=== PATIENT | female | born 1960 | race Caucasian/White ===

== ENCOUNTER 2016-11-23 14:38 | Emergency (ER) | payer OTHER ==
[~2016-11-23] VITALS: Ht 157.5 cm; Wt 80.3 kg
[2016-11-23 15:13] LABS: BILIRUBIN,URINE NEGATIVE (NEG); GLUCOSE,URINE NEGATIVE (NEG); NITRITE,URINE NEGATIVE (NEG); PROTEIN,URINE NEGATIVE (NEG-TRACE); UROBILINOGEN,URINE 0.2 mg/dL (0.2 mg/dL)
[2016-11-23] MEDS ORDERED: ONDANSETRON ODT 4 MG TAB.RAPDIS. PO ONE (15:15)
[2016-11-23] MEDS ORDERED: MORPHINE SULFATE 10 MG/ML VIAL. IV ONE (15:15)
[2016-11-23 15:25] LABS: BACTERIA,URINE 0 /HPF (0-FEW); SQUAMOUS EPITHELIAL CELL,UR FEW /LPF; WBC,URINE OCC /HPF (0-4)
[2016-11-23 15:28] LABS: BASO # 0.1 x10^3/uL (0.0-0.2); BASO % 1 % (0-3); EOS % 2 % (0-3); HEMATOCRIT 37.5 % (36.0-47.0); LYMPH # 3.3 x10^3/uL (1.0-4.8); LYMPH % 28 % (24-48); MEAN CORPUSCULAR HEMOGLOBIN 29 pg (25-35); MEAN CORPUSCULAR HGB CONC 35 g/dL (31-37); MEAN CORPUSCULAR VOLUME 84 fL (79-100); MONO % 6 % (0-9); NEUT % 64 % (31-73); PLATELET COUNT 282 x10^3/uL (140-400); RED BLOOD COUNT 4.45 x10^6/uL (3.50-5.40); RED CELL DISTRIBUTION WIDTH 14.5 % (11.5-14.5); WHITE BLOOD COUNT 12.1 x10^3/uL (4.0-11.0)
[2016-11-23 15:43] LABS: CALCIUM 9.3 mg/dL (8.5-10.1); CREATININE 0.6 mg/dL (0.6-1.0); POTASSIUM 3.8 mmol/L (3.5-5.1)
[2016-11-23] MEDS ORDERED: IOHEXOL 300 MG/ML 75 ML VIAL IV ONE (15:45)
[2016-11-23 15:50] LABS: ALBUMIN 3.5 g/dL (3.4-5.0); ALBUMIN/GLOBULIN RATIO 0.8 (1.0-1.7); TOTAL BILIRUBIN 0.4 mg/dL (0.2-1.0); TOTAL PROTEIN 7.8 g/dL (6.4-8.2)
--- NOTE | 2016-11-23 16:40 | PHYS DOC ---
Past Medical History Past Medical History: No Pertinent History Past Surgical History: , Tonsillectomy, Other Additional Past Surgical Histo: [email or web address] , CTR Alcohol Use: Rarely Drug Use: None Adult General Chief Complaint Chief Complaint: ABDOMINAL PAIN HPI HPI Patient is a 56 year old female presenting to the emergency department for evaluation of right lower quadrant abdominal pain that has been going on for the past 2 weeks but is worsening over the past 2-3 days. She says that it is a severe sharp pain worse especially when she bends forward. She denies any dysuria hematuria diarrhea or constipation but has some nausea and vomiting. She denies any prior abdominal surgeries except for a . She is in no obvious distress with normal vital signs. Review of Systems Review of Systems Constitutional: Denies fever or chills [] Eyes: Denies change in visual acuity, redness, or eye pain [] HENT: Denies nasal congestion or sore throat [] Respiratory: Denies cough or shortness of breath [] Cardiovascular: No additional information not addressed in HPI [] GI: + abdominal pain, nausea, vomiting. No bloody stools or diarrhea [] : Denies dysuria or hematuria [] Musculoskeletal: Denies back pain or joint pain [] Integument: Denies rash or skin lesions [] Neurologic: Denies headache, focal weakness or sensory changes [] Current Medications Current Medications Current Medications Medications (Trade) Dose Ordered Sig/Anna Start Time Stop Time Status Last Admin Dose Admin Iohexol (Omnipaque 300 Mg/ml) 75 ml 1X ONCE 11/23/16 15:45 11/23/16 15:46 DC 11/23/16 16:08 75 ML Morphine Sulfate 5 mg 1X ONCE 11/23/16 15:15 11/23/16 15:16 DC 11/23/16 15:29 5 MG Ondansetron HCl (Zofran Odt) 8 mg 1X ONCE 11/23/16 15:15 11/23/16 15:16 DC 11/23/16 15:28 8 MG Allergies Allergies Allergies Coded Allergies Type Severity Reaction Last Updated Verified codeine Allergy Intermediate Rash 11/23/16 Yes Physical Exam Physical Exam Constitutional: Well developed, well nourished, no acute distress, non-toxic appearance. [] HENT: Normocephalic, atraumatic, bilateral external ears normal, oropharynx moist, no oral exudates, nose normal. [] Eyes: PERRLA, EOMI, conjunctiva normal, no discharge. [] Neck: Normal range of motion, no tenderness, supple, no stridor. [] Cardiovascular:Heart rate regular rhythm, no murmur [] Lungs & Thorax: Bilateral breath sounds clear to auscultation [] Abdomen: Bowel sounds normal, soft, + RLQ tenderness, no rebound or guarding, no masses, no pulsatile masses. [] Skin: Warm, dry, no erythema, no rash. [] Back: No tenderness, no CVA tenderness. [] Extremities: No tenderness, no cyanosis, no clubbing, ROM intact, no edema. [] Neurologic: Alert and oriented X 3, normal motor function, normal sensory function, no focal deficits noted. [] Current Patient Data Vital Signs Vital Signs Date Time Temp Pulse Resp B/P (MAP) Pulse Ox O2 Delivery O2 Flow Rate FiO2 11/23/16 15:29 14 97 Room Air 11/23/16 14:52 99.5 80 133/77 (95) 99.5 Lab Values Laboratory Tests Test 11/23/16 14:29 11/23/16 15:15 Urine Collection Type Void Urine Color Yellow Urine Clarity Clear Urine pH 7.0 Urine Specific Haddock 1.025 Urine Protein Negative mg/dL (NEG-TRACE) Urine Glucose (UA) Negative mg/dL (NEG) Urine Ketones (Stick) Negative mg/dL (NEG) Urine Blood Small (NEG) Urine Nitrite Negative (NEG) Urine Bilirubin Negative (NEG) Urine Urobilinogen Dipstick 0.2 mg/dL (0.2 mg/dL) Urine Leukocyte Esterase Trace (NEG) Urine RBC 3-5 /HPF (0-2) Urine WBC Occ /HPF (0-4) Urine Squamous Epithelial Cells Few /LPF Urine Bacteria 0 /HPF (0-FEW) Urine Mucus Marked /LPF White Blood Count 12.1 x10^3/uL (4.0-11.0) H Red Blood Count 4.45 x10^6/uL (3.50-5.40) Hemoglobin 13.0 g/dL (12.0-15.5) Hematocrit 37.5 % (36.0-47.0) Mean Corpuscular Volume 84 fL (79-100) Mean Corpuscular Hemoglobin 29 pg (25-35) Mean Corpuscular Hemoglobin Concent 35 g/dL (31-37) Red Cell Distribution Width 14.5 % (11.5-14.5) Platelet Count 282 x10^3/uL (140-400) Neutrophils (%) (Auto) 64 % (31-73) Lymphocytes (%) (Auto) 28 % (24-48) Monocytes (%) (Auto) 6 % (0-9) Eosinophils (%) (Auto) 2 % (0-3) Basophils (%) (Auto) 1 % (0-3) Neutrophils # (Auto) 7.8 x10^3uL (1.8-7.7) H Lymphocytes # (Auto) 3.3 x10^3/uL (1.0-4.8) Monocytes # (Auto) 0.7 x10^3/uL (0.0-1.1) Eosinophils # (Auto) 0.2 x10^3/uL (0.0-0.7) Basophils # (Auto) 0.1 x10^3/uL (0.0-0.2) Sodium Level 142 mmol/L (136-145) Potassium Level 3.8 mmol/L (3.5-5.1) Chloride Level 105 mmol/L (98-107) Carbon Dioxide Level 27 mmol/L (21-32) Anion Gap 10 (6-14) Blood Urea Nitrogen 10 mg/dL (7-20) Creatinine 0.6 mg/dL (0.6-1.0) Estimated GFR (Cockcroft-Gault) 103.0 BUN/Creatinine Ratio 17 (6-20) Glucose Level 90 mg/dL (70-99) Calcium Level 9.3 mg/dL (8.5-10.1) Total Bilirubin 0.4 mg/dL (0.2-1.0) Aspartate Amino Transferase (AST) 11 U/L (15-37) L Alanine Aminotransferase (ALT) 17 U/L (14-59) Alkaline Phosphatase 75 U/L (46-116) Total Protein 7.8 g/dL (6.4-8.2) Albumin 3.5 g/dL (3.4-5.0) Albumin/Globulin Ratio 0.8 (1.0-1.7) L Lipase 123 U/L (73-393) Laboratory Tests 11/23/16 15:15 Laboratory Tests 11/23/16 15:15 EKG EKG [] Radiology/Procedures Radiology/Procedures CT scan of the abdomen and pelvis with contrast 11/23/2016 Clinical history: Right lower quadrant abdominal pain for 2 weeks. Technique: After the intravenous administration of 75 cc of Omnipaque 300 only, contiguous, 5 mm axial sections were obtained through the abdomen and pelvis. One or more of the following individualized dose reduction techniques were utilized for this study: 1. Automated exposure control. 2. Adjustment of the mA and/or kV according to patient size. 3. Use of iterative reconstruction technique. Images through the lung bases demonstrate minimal dependent subsegmental atelectasis bilaterally. Several rounded low-attenuation lesions are seen scattered throughout the liver. These measure 3 mm to 1.2 cm in size. They likely represent cysts. The spleen, pancreas, adrenal glands and kidneys are within normal limits. The abdominal aorta tapers normally. The gallbladder is well-distended. No free fluid or free air is seen within the abdomen. There is no evidence of bowel obstruction. The appendix is well visualized and is within normal limits. Multiple diverticula are seen involving the sigmoid colon. Focal wall thickening is seen involving the mid sigmoid colon. Increased density is seen within the adjacent fat. These findings are consistent with diverticulitis. No abnormal fluid collection is seen suggestive evidence of an abscess. Images through the pelvis demonstrate a urinary bladder distended with urine. Calcifications are seen within the pelvis consistent with phleboliths. No free fluid is seen. Degenerative changes are seen involving the lower thoracic and throughout the lumbar spine and both hips. Impression: Findings consistent with sigmoid diverticulitis. No abscess is seen. DICTATED and SIGNED BY: YEHUDA PORTILLO MD DATE: 11/23/16 5596 Course & Med Decision Making Course & Med Decision Making Patient with right lower quadrant pain so we'll get labs CT and reassess. Her urine has a small amount of blood in her symptoms were possibly kidney stone however given the urine is not definitive went ahead and ordered a CT with contrast which showed sigmoid diverticulitis. She does have some pain in her left lower quadrant on repeat examination. There is no hydronephrosis noted on her CT scan. Given the findings of diverticulitis and no findings to support kidney stone we'll go ahead and treat as diverticulitis for now as an outpatient. Patient aware and agreeable with plan for discharge and verbalized understanding of the need for short-term follow-up and strict ER return precautions discussed including worsening pain fevers vomiting or other general concerns. Dragon Disclaimer Dragon Disclaimer This electronic medical record was generated, in whole or in part, using a voice recognition dictation system. Departure Departure Impression: Primary Impression: Diverticulitis Additional Impression: Leukocytosis Disposition: 01 HOME, SELF-CARE Condition: GOOD Referrals: SHWETA MACEDO MD (PCP) Patient Instructions: Diverticulitis Additional Instructions: Drink plenty of water and eat a soft non-irritating diet. Take 400 mg of ibuprofen every 6 hours for the pain and the Percocet for breakthrough pain. Follow with your primary care provider later this week and come back to the ER sooner with any worsening pain fevers vomiting or other general concerns. Scripts Metronidazole (FLAGYL) 500 Mg Tablet 1 TAB PO BID, #14 TAB Prov: SHWETA MEDEROS DO 11/23/16 Levofloxacin (LEVAQUIN) 500 Mg Tablet 1 TAB PO DAILY, #7 TAB Prov: SHWETA MEDEROS DO 11/23/16 Ondansetron (ZOFRAN ODT) 4 Mg Tab.rapdis 4 MG PO BID Y for NAUSEA/VOMITING, #14 TAB Prov: SHWETA MEDEROS DO 11/23/16 Oxycodone/Apap 5-325 (PERCOCET 5-325 MG TABLET) 1 Each Tablet 1 TAB PO PRN Q6HRS Y for PAIN, #20 TAB 0 Refills Prov: SHWETA MEDEROS DO 11/23/16 Problem Qualifiers Primary Impression: Diverticulitis Diverticulitis site: large intestine Diverticulitis bleeding: without bleeding Diverticulitis complication: without perforation or abscess Qualified Codes: K57.32 - Diverticulitis of large intestine without perforation or abscess without bleeding SHWETA MEDEROS DO Nov 23, 2016 16:40
--- NOTE | 2016-11-23 16:46 | RAD ---
CT scan of the abdomen and pelvis with contrast 11/23/2016 Clinical history: Right lower quadrant abdominal pain for 2 weeks. Technique: After the intravenous administration of 75 cc of Omnipaque 300 only, contiguous, 5 mm axial sections were obtained through the abdomen and pelvis. One or more of the following individualized dose reduction techniques were utilized for this study: 1. Automated exposure control. 2. Adjustment of the mA and/or kV according to patient size. 3. Use of iterative reconstruction technique. Images through the lung bases demonstrate minimal dependent subsegmental atelectasis bilaterally. Several rounded low-attenuation lesions are seen scattered throughout the liver. These measure 3 mm to 1.2 cm in size. They likely represent cysts. The spleen, pancreas, adrenal glands and kidneys are within normal limits. The abdominal aorta tapers normally. The gallbladder is well-distended. No free fluid or free air is seen within the abdomen. There is no evidence of bowel obstruction. The appendix is well visualized and is within normal limits. Multiple diverticula are seen involving the sigmoid colon. Focal wall thickening is seen involving the mid sigmoid colon. Increased density is seen within the adjacent fat. These findings are consistent with diverticulitis. No abnormal fluid collection is seen suggestive evidence of an abscess. Images through the pelvis demonstrate a urinary bladder distended with urine. Calcifications are seen within the pelvis consistent with phleboliths. No free fluid is seen. Degenerative changes are seen involving the lower thoracic and throughout the lumbar spine and both hips. Impression: Findings consistent with sigmoid diverticulitis. No abscess is seen.
[2016-11-23] MEDS ORDERED: OXYC-323 PO (17:12)
[2016-11-23] MEDS ORDERED: METR500T PO (17:12)
[2016-11-23] MEDS ORDERED: ONDA4TAB10 PO (17:12)
[2016-11-23] MEDS ORDERED: LEVO500T59 PO (17:12)
[2016-11-23] MEDS ORDERED: KETOROLAC TROMETHAMINE 30 MG/ML INJ. IV ONE (17:15)
[2016-11-23 17:45] VITALS: BP 123/67
== END 2016-11-23 17:50 | disposition home or self-care (01) ==
LOC: ER 14:38
DX: K57.32 Diverticulitis of large intestine without perforation or abscess without bleeding (principal); D72.829 Elevated white blood cell count, unspecified
CPT/HCPCS: 36415; 74177; 80053; 81001; 83690; 85027; 87086; 96374; 96375; 99285; J1885; J2270; Q0162; Q9967

== ENCOUNTER → 2017-12-02 | Outpatient (CLI) | payer OTHER | END | disposition home or self-care (01) | LOC: KCIC MRI 13:15 | DX: S63.041A Subluxation of carpometacarpal joint of right thumb, initial encounter (principal); S63.641A Sprain of metacarpophalangeal joint of right thumb, initial encounter; M18.11 Unilateral primary osteoarthritis of first carpometacarpal joint, right hand; M65.841 Other synovitis and tenosynovitis, right hand; M25.441 Effusion, right hand; X58.XXXA Exposure to other specified factors, initial encounter; Y93.89 Activity, other specified; Y92.89 Other specified places as the place of occurrence of the external cause; Y99.8 Other external cause status | CPT/HCPCS: 73218 ==